=== PATIENT | female | born 1950 | race Caucasian/White ===

== ENCOUNTER 2018-03-04 13:39 | Outpatient (CLI) | payer MEDICARE | END 2018-03-04 13:40 | disposition home or self-care (01) | LOC: BICMAMMO 13:39 | PROVIDERS: ATTEND Family Medicine | DX: R92.8 Other abnormal and inconclusive findings on diagnostic imaging of breast (principal) | CPT/HCPCS: 77065; G0279 ==

== ENCOUNTER 2018-12-12 08:02 | Outpatient (CLI) | payer MEDICARE ==
--- NOTE | 2018-12-12 09:08 | RAD ---
PA AND LATERAL VIEWS CHEST: Date: 12/12/18 HISTORY: Dyspnea. FINDINGS: The heart is enlarged. The aorta is tortuous. The lungs are expanded without foal areas of consolidat ion, pneumothorax, huang pulmonary edema, or pleural effusions. There are degenerative changes in the spine. IMPRESSION: Cardiomegaly. POS: [facility]
== END 2018-12-12 08:03 | disposition home or self-care (01) ==
LOC: RAD 08:02
PROVIDERS: ATTEND Internal Medicine Critical Care Medicine
DX: R06.00 Dyspnea, unspecified (principal); I51.7 Cardiomegaly
CPT/HCPCS: 71046

== ENCOUNTER 2020-09-06 09:52 | Outpatient (CLI) | payer MEDICARE ==
--- NOTE | 2020-09-06 12:38 | RAD ---
PA AND LATERAL CHEST: Date: 09/06/2020 HISTORY: Dyspnea. COMPARISON: 06/21/2020 exam. FINDINGS: Heart size is enlarged. Heart size appears increased as compared to the prior exam. Hilar regions are prominent, probably related to prominent pulmonary arteries. This is a similar finding to the prior study. No infiltrative lung process seen. IMPRESSION: Cardiomegaly. Heart size appears increased as compared to the prior exam. Prominent hilar regions are probably on the basis of some element of pulmonary artery hypertension. This is a similar appearanc e to that seen on the prior study. POS: [facility]
== END 2020-09-06 09:53 | disposition home or self-care (01) ==
LOC: BICRAD 09:52
PROVIDERS: ATTEND Internal Medicine Critical Care Medicine
DX: R06.00 Dyspnea, unspecified (principal); I51.7 Cardiomegaly
CPT/HCPCS: 71046

== ENCOUNTER 2020-11-02 19:00 | Outpatient (CLI) | payer MEDICARE | END 2020-11-02 19:01 | disposition home or self-care (01) | LOC: SLEEPLAB 19:00 | PROVIDERS: ATTEND Internal Medicine Critical Care Medicine | DX: G47.33 Obstructive sleep apnea (adult) (pediatric) (principal); G47.10 Hypersomnia, unspecified; R06.83 Snoring; E66.9 Obesity, unspecified; Z68.37 Body mass index [BMI] 37.0-37.9, adult | CPT/HCPCS: 95811 ==

== ENCOUNTER 2022-05-15 14:23 | Outpatient (CLI) | payer MEDICARE | END 2022-05-15 14:24 | disposition home or self-care (01) | LOC: LAB 14:23 | PROVIDERS: ATTEND Family Medicine | DX: J96.02 Acute respiratory failure with hypercapnia (principal); Z79.899 Other long term (current) drug therapy; Z53.9 Procedure and treatment not carried out, unspecified reason | CPT/HCPCS: 36415; 82805; 83880; 85025 ==

== ENCOUNTER 2022-06-25 00:19 | Inpatient (IN) | payer MEDICARE ==
[2022-06-25] MEDS ORDERED: Norepinephrine 4 MG/4 ML VIAL ONE (00:27)
[2022-06-25] MEDS ORDERED: NOREPINEPHRINE 8 MG/250 ML-D5W 250 ML ONE (00:29)
[2022-06-25] MEDS ORDERED: Magnesium 2 GM/50 ML BAG (IN WATER) ONE (00:32)
[2022-06-25] MEDS ORDERED: Amiodarone 150 MG/3 ML VIAL ONE ×2 (00:34→00:40)
[2022-06-25] MEDS ORDERED: Sodium Bicarb 50 MEQ/50 ML Abboject 8.4% SYRINGE ONE (00:40)
[2022-06-25] MEDS ORDERED: Dextrose 50% Abboject 50 ML SYRINGE ONE (00:40)
[2022-06-25 00:56] LABS: Actual Bicarbonate (HCO3a) 15.6 mEq/L (22-28); Analyzer IN Cardio ER; CO2 Tension 37.2 mmHg (35.0-45.0); Calcium, Ionized (arterial) 1.05 mmol/L (1.12-1.30); Carboxyhemoglobin (COHb) 0.3 gm% (0.0-3.0); Hemoglobin (Hb) 12.9 g/dL (12.0-16.0); O2 Tension (PaO2), arterial 264.8 mmHg (> 70.0); Potassium - ABG Lab 5.11 mmol/L (3.70-5.30)
[2022-06-25 01:11] LABS: Hemoglobin 12.1 g/dL (12.0-16.0); Mean Corpuscular HGB CONC 30.8 g/dL (32.0-36.0); Mean Corpuscular Hemoglobin 28.7 pg (27.0-31.0); Mean Corpuscular Volume 92.9 fL (78.0-98.0); Mean Platelet Volume 8.8 fL (7.4-10.4); Platelet Count 240 thou/uL (130-400); RBC Distribution Width 16.3 % (11.5-14.5); Red Blood Cell (RBC) Count 4.22 mill/uL (4.20-5.40); White Blood Cell (WBC) Count 4.8 thou/uL (4.8-10.8)
[2022-06-25 01:26] LABS: Acetaminophen Less than 10.0 mcg/mL (10.0-30.0); Alcohol Less than 10 mg/dL (Less than 10); Salicylate Less than 8.0 mg/dL (15.0-30.0)
[2022-06-25 01:27] LABS: ALT (SGPT) 426 U/L (8-55); AST (SGOT) 857 U/L (5-34); Albumin 3.4 g/dL (3.4-4.8); Alkaline Phosphatase 130 U/L (40-110); Anion Gap 28 mmol/L (10-20); BUN (Urea Nitrogen) 45 mg/dL (9.8-20.1); Bilirubin, Total 3.1 mg/dL (0.2-1.2); CK (CPK) 508 U/L (29-168); Calc. Creatinine Clearance 0 mL/min (70-130); Carbon Dioxide 16 mmol/L (23-31); Chloride 103 mmol/L (98-107); Estimated GFR 11; Globulin 3.1 g/dL (2.4-3.5); Lipase 39 U/L (8-78); Potassium 5.3 mmol/L (3.5-5.1); Protein, Total 6.5 g/dL (5.8-8.1); Sodium 142 mmol/L (136-145)
[2022-06-25 01:28] LABS: Band 1 % (5-11); Lymphocytes 26 % (21-51); MDiff Complete? YES; Neutrophil 73 % (42-75); Platelet Morphology Comment Appears Adequate; RBC Morphology Normal
[2022-06-25 01:34] LABS: Glucose 15 mg/dL (83-110)
[2022-06-25 01:38] LABS: Bilirubin Negative (Negative); Blood, Urine Negative (Negative); Clarity Clear (Clear); Glucose, Urine (Dipstick) Normal (Negative); Ketone, Urine Negative (Negative); Leukocyte Negative Leu/uL (Negative); Nitrite Negative (Negative); Protein, Urine (Dipstick) Negative (Neg-Trace); Urobilinogen Normal mg/dL (Less than 2)
[2022-06-25 01:50] LABS: Amphetamine Not Detected (NotDetected); Barbiturates Screen Not Detected (NotDetected); Benzodiazepine Screen Not Detected (NotDetected); Cocaine Metabolite Screen Not Detected (NotDetected); Methadone Not Detected (NotDetected); Methamphetamine Not Detected (NotDetected); Opiate Screen Not Detected (NotDetected); Oxycodone Screen Not Detected (NotDetected); Phencyclidine (PCP) Not Detected (NotDetected); THC/Cannabinoid Screen Not Detected (NotDetected); Tricyclic Screen Not Detected (NotDetected)
[2022-06-25 02:03] LABS: CKMB 10.5 ng/mL (0-6.6)
[2022-06-25 02:10] LABS: SARS-CoV-2 NAA Rapid Test Not Detected (NotDetected)
[2022-06-25] MEDS ORDERED: Acetaminophen 325 MG TAB PO PRN (03:00)
[2022-06-25] MEDS ORDERED: Aspirin 300 MG Suppository ONE (03:08)
[2022-06-25] MEDS ORDERED: Enoxaparin Sodium 100 MG/ML SYRINGE ONE (03:09)
[2022-06-25] MEDS ORDERED: Enoxaparin Sodium 40 MG/0.4 ML SYRINGE ONE (03:09)
[2022-06-25] MEDS ORDERED: NOREPINEPHRINE 8 MG/250 ML-D5W 250 ML IVPB SCH ×2 (03:15→04:00)
[2022-06-25] MEDS ORDERED: Amiodarone 450 MG, Admixture Fee 1 EACH in Dextrose 5% in Water 250 ML IVPB SCH (03:15)
[2022-06-25] MEDS ORDERED: Amiodarone 450 MG in Dextrose 5% in Water 250 ML IVPB SCH (04:00)
[2022-06-25 04:24] LABS: Critical Call Chem-Lactate @NO RESPONSE; Lactic Acid 8.3 mmol/L (0.5-2.2)
[2022-06-25 05:14] LABS: pH, Arterial 7.24 (7.35-7.45)
[2022-06-25 05:15] LABS: Puncture Site LRA
[2022-06-25] MEDS ORDERED: Dextrose 5% in Water 1,000 ML IV SCH ×2 (05:15→06:00)
[2022-06-25] MEDS ORDERED: Dextrose 50% Abboject 50 ML SYRINGE IVP PRN (05:15)
[2022-06-25] MEDS ORDERED: Dextrose 5% in Water 1,000 ML IV PRN (05:15)
[2022-06-25] MEDS: Morphine 4 MG/ML VIAL ONE ×2 (05:50→06:24)
[2022-06-25] MEDS ORDERED: Vancomycin 2 GM in Premix Bag 1 BAG IVPB SCH (06:00)
[2022-06-25] MEDS ORDERED: Lactated Ringer's 1,000 ML IV SCH ×3 (06:00→06:15)
[2022-06-25] MEDS ORDERED: Cefepime 0.5 GM in Sodium Chloride 0.9% 100 ML IVPB SCH (06:00)
[2022-06-25] MEDS ORDERED: Morphine 2 MG/ML VIAL SLOW IVP SCH (06:00)
[2022-06-25 06:20] VITALS: BMI 44.6
[2022-06-25 06:30] VITALS: BP 128/65
[2022-06-25] MEDS ORDERED: Vasopressin 20 UNIT, Admixture Fee 1 EACH in Sodium Chloride 0.9% 50 ML IV SCH (06:45)
[2022-06-25] MEDS ORDERED: Dextrose 5%-Lactated Ringers 1,000 ML IV SCH (07:00)
[2022-06-25] MEDS ORDERED: Hydrocortisone Sod Succ/PF 100 mg/2 ml Vial IVP SCH ×2 (07:30→14:00)
[2022-06-25 07:35] LABS: Troponin I 4.387 ng/mL (< 0.028)
[2022-06-25] MEDS ORDERED: VANCOMYCIN 2 GRAM/500 ML BAG 2 GM in Premix Bag 1 BAG IVPB SCH (08:00)
[2022-06-25] MEDS ORDERED: Furosemide 40 MG/4 ML VIAL SLOW IVP SCH (08:00)
[2022-06-25] MEDS ORDERED: Cefepime 1 GM in Sodium Chloride 0.9% 100 ML IVPB SCH (08:00)
[2022-06-25] MEDS ORDERED: Pantoprazole 40 MG VIAL IVP SCH (09:00)
[2022-06-25] MEDS ORDERED: Morphine 4 MG/ML VIAL SLOW IVP PRN (09:24)
[2022-06-25] MEDS ORDERED: Midazolam HCl 2 mg/2 ml Vial SLOW IVP PRN ×2 (09:46→10:08)
[2022-06-25 13:06] VITALS: TEMP 97.8
[2022-06-26] MEDS ORDERED: Enoxaparin Sodium 80 MG/0.8 ML SYRINGE SC SCH (03:00)
[2022-06-26] MEDS ORDERED: Vancomycin 1 GM in Premix Bag 1 BAG IVPB SCH (08:00)
== END 2022-06-25 11:32 | disposition expired ==
LOC: ERS 00:19 → CCU 02:30
PROVIDERS: ADMIT Family Medicine; ATTEND Family Medicine
PROC: 5A09357 Assistance with Respiratory Ventilation, Less than 24 Consecutive Hours, Continuous Positive Airway Pressure (ICD-10-PCS; principal; 2022-06-25)
PROC: 3E043XZ Introduction of Vasopressor into Central Vein, Percutaneous Approach (ICD-10-PCS; 2022-06-25)
PROC: 5A2204Z Restoration of Cardiac Rhythm, Single (ICD-10-PCS; 2022-06-25)
PROC: 06HY33Z Insertion of Infusion Device into Lower Vein, Percutaneous Approach (ICD-10-PCS; 2022-06-25)
DX: I27.20 Pulmonary hypertension, unspecified (principal); Z66 Do not resuscitate; Z20.822 Contact with and (suspected) exposure to COVID-19; Z51.5 Encounter for palliative care; R57.0 Cardiogenic shock; I21.4 Non-ST elevation (NSTEMI) myocardial infarction; J96.01 Acute respiratory failure with hypoxia; K72.00 Acute and subacute hepatic failure without coma; N17.0 Acute kidney failure with tubular necrosis; I47.1 Supraventricular tachycardia; Z68.41 Body mass index [BMI] 40.0-44.9, adult; E72.20 Disorder of urea cycle metabolism, unspecified; E87.2 Acidosis; N18.5 Chronic kidney disease, stage 5; I13.0 Hypertensive heart and chronic kidney disease with heart failure and stage 1 through stage 4 chronic kidney disease, or unspecified chronic kidney disease; I47.2 Ventricular tachycardia; I42.8 Other cardiomyopathies; I50.811 Acute right heart failure; E66.01 Morbid (severe) obesity due to excess calories; E87.5 Hyperkalemia; I25.10 Atherosclerotic heart disease of native coronary artery without angina pectoris; J45.909 Unspecified asthma, uncomplicated; J42 Unspecified chronic bronchitis; K21.9 Gastro-esophageal reflux disease without esophagitis; I10 Essential (primary) hypertension; G47.33 Obstructive sleep apnea (adult) (pediatric); E16.2 Hypoglycemia, unspecified; Z95.5 Presence of coronary angioplasty implant and graft; Z86.711 Personal history of pulmonary embolism; Z86.718 Personal history of other venous thrombosis and embolism; Z98.42 Cataract extraction status, left eye; Z98.41 Cataract extraction status, right eye; Z90.49 Acquired absence of other specified parts of digestive tract; Z90.710 Acquired absence of both cervix and uterus; Z98.890 Other specified postprocedural states; Z86.19 Personal history of other infectious and parasitic diseases
CPT/HCPCS: 36415; 36416; 36556; 36600; 51702; 70450; 71045; 80053; 80306; 80307; 81003; 82140; 82550; 82553; 82805; 83605; 83690; 83880; 84484; 85025; 85379; 92960; 93005; 94644; 94660; 96365; 96372; 96375; 99292; C9113; J0282; J0692; J1650; J1720; J1940; J1956; J2250; J2270; J3370; J3475; J3490; J7070; J7120; J7620; J7999; U0002